=== PATIENT | female | born 1965 | race Caucasian/White ===

== ENCOUNTER 2016-06-24 07:34 | Emergency (ER) | payer OTHER ==
[2016-06-24 07:41] VITALS: PULSE 74; TEMP 97.7; O2SAT 97
--- NOTE | 2016-06-24 07:51 | EDPHY ---
H & P Stated Complaint: non traumatic r arm/shoulder pain since 0300 Time Seen by Provider: 06/24/16 07:50 - Personal History LMP (Females 10-55): 15-21 Days Ago Current Tetanus/Diphtheria Vaccine: Yes - Medical/Surgical History Hx Asthma: No Hx Chronic Respiratory Disease: No Hx Diabetes: No Hx Cardiac Disease: No Hx Renal Disease: No Hx Cirrhosis: No Hx Alcoholism: No Hx HIV/AIDS: No Hx Splenectomy or Spleen Trauma: No Other PMH: rhinoplasty - Social History Smoking Status: Never smoked Constitutional: Initial Vital Signs Temperature (C) 36.5 C 06/24/16 07:38 Heart Rate 74 06/24/16 07:38 Respiratory Rate 17 06/24/16 07:38 Blood Pressure 130/88 H 06/24/16 07:38 O2 Sat (%) 97 06/24/16 07:38 O2 Delivery Mode Room Air Allergies/Adverse Reactions: No Known Allergies Allergy (Unverified 06/24/16 07:38) Home Medications: Medication Instructions Recorded NK [No Known Home Meds] 06/24/16 Medical Decision Making ED Course/Re-evaluation: CHIEF COMPLAINT: Right shoulder pain HISTORY OF PRESENT ILLNESS: The patient is a 51 y/o female complaining of acute onset right arm pain that woke her from sleep early this morning around 03 :00, about 5 hours ago. She describes the pain as "excruciating" and located primarily along her anterior right shoulder. Her movement is limited by pain and not associated with weakness or paresthesias. She has never experienced these symptoms previously. 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 She cannot identify any other possible precipitating factors. She took two ibuprofen with no alleviation of her pain. She has a history of low back pain. REVIEW OF SYSTEMS: A 10 point review of systems was performed and is negative with the exception of the elements mentioned in the history of present illness. PHYSICAL EXAM: HR, BP, O2 Sat, RR. Temp noted General Appearance: Alert, well hydrated, appropriate, and non-toxic appearing. Musculoskeletal: Tenderness along anterior cuff of right shoulder consistent with impingement sign. Normal active ROM of all other extremities, atraumatic. Neurological: Alert, appropriate, and interactive. The patient has normal DTRs and non-focal cranial nerves, motor, sensory, and cerebellar exam. Skin: No rashes, good turgor, no nodules on palpation. Past medical history: Chronic back pain, herniated disc Past surgical history: Denies Family history: Noncontributory Social history: Lives in [place]. 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 DIAGNOSTICS/PROCEDURES/CRITICAL CARE TIME: Study: MRI of the: right shoulder Indication: Pain Results: MRI scan of the shoulder was obtained. The results of the study are right torn long head of biceps and labral tear. The study was read by the radiologist, Dr. Jeffrey. I viewed the images myself on the PACS system. DIFFERENTIAL DIAGNOSIS: The differential diagnosis for the patient's shoulder pain included but was not limited to musculo-skeletal pain, epidural abscess, herniated disk, fracture, arthritis, and inflammatory causes. MEDICAL DECISION MAKING: This is a healthy 51 y/o female with a prior history of low back pain who presents with acute onset right shoulder pain this morning. Her pain is reproducible by Neer test movements and palpation of the anterior rotator cuff. Her exam is otherwise unremarkable. She is neurovascularly intact. Plan for shoulder MRI to rule out anterior cuff impingement. She declines pain medication at this time. 0942: MRI reveals torn long head of biceps and labral tear. I discussed this with the patient and answered all her questions. She will be discharged with a referral to ortho and script for OxyIR as needed for pain. Return precautions given. She is comfortable with this plan. Departure - Departure Disposition: Home, Routine, Self-Care Clinical Impression: Biceps muscle tear Qualifiers: Encounter type: initial encounter Laterality: right Qualified Code(s): S46.111A - Strain of muscle, fascia and tendon of long head of biceps, right arm , initial encounter Glenoid labrum tear Qualifiers: Encounter type: initial encounter Laterality: right Qualified Code(s): S43.431A - Superior glenoid labrum lesion of right shoulder, initial encounter Condition: Good Instructions: Rotator Cuff Injury (ED), Tendon Rupture (ED) Additional Instructions: 1. Use 600mg ibuprofen for pain every 6-8 hours over the next 5-7 days. 2. Take OxyIR as prescribed if needed for pain not controlled by ibuprofen. 3. Wear sling until follow up. 4. Follow up with Dr. Dubose, shoulder surgeon, this week. 5. Return to the ED if you experience weakness or paresthesias. Referrals: NONE *PRIMARY CARE P,. [Primary Care Provider] - As per Instructions Brayan Dubose MD [Medical Doctor] - As per Instructions Report Scribed for: James Roberts Report Scribed by: Marisel Cerrato Date of Report: 06/24/16 Time of Report: 08:06
[2016-06-24 10:05] VITALS: BP 124/76; RESP 16
== END 2016-06-24 10:05 | disposition home or self-care (01) ==
DX: S46.111A Strain of muscle, fascia and tendon of long head of biceps, right arm, initial encounter (principal); S43.431A Superior glenoid labrum lesion of right shoulder, initial encounter; X58.XXXA Exposure to other specified factors, initial encounter

== ENCOUNTER → 2017-08-22 | Outpatient (CLI) | payer OTHER | LOC: BMCIMAGING 11:47 | PROVIDERS: ATTEND Emergency Medicine | DX: R07.0 Pain in throat (principal); R49.0 Dysphonia; M50.323 Other cervical disc degeneration at C6-C7 level ==